=== PATIENT | male | born 1970 ===

== ENCOUNTER 2017-12-30 01:37 | Emergency (ER) | payer SELFPAY ==
[2017-12-30] MEDS ORDERED: HYDROcodone/Acetaminophen 10/325 mg Tablet ONE (02:01)
--- NOTE | 2017-12-30 07:18 | RAD ---
RIGHT ANKLE 3 VIEWS: Date: 12/30/17 Soft tissue swelling is present around the ankle, especially laterally. No acute fracture is seen. Th e articular surfaces seem smooth. There is prominent beaking of the anterior talus. A small calcaneal spur is present. There is irregularity on the dorsum of the posterior calcaneus that may be from an old injury. I see nothing that appears acute. IMPRESSION: Possible old injury to the bones, but no acute fracture. Prominent lateral swelling. POS: HOME
== END 2017-12-30 03:18 | disposition home or self-care (01) ==
LOC: BURERS 01:37
DX: S90.01XA Contusion of right ankle, initial encounter (principal); F17.220 Nicotine dependence, chewing tobacco, uncomplicated; F17.210 Nicotine dependence, cigarettes, uncomplicated; V03.90XA Pedestrian on foot injured in collision with car, pick-up truck or van, unspecified whether traffic or nontraffic accident, initial encounter
CPT/HCPCS: 29515